=== PATIENT | male | born 2000 | race African-American/Black ===

== ENCOUNTER 2021-01-01 13:15 | Emergency (ER) | payer OTHER, SELFPAY | END 2021-01-01 15:15 | disposition home or self-care (01) | LOC: CSHERS 13:15 | DX: S09.90XA Unspecified injury of head, initial encounter (principal); S29.012A Strain of muscle and tendon of back wall of thorax, initial encounter; S76.911A Strain of unspecified muscles, fascia and tendons at thigh level, right thigh, initial encounter; V43.53XA Car driver injured in collision with pick-up truck in traffic accident, initial encounter | CPT/HCPCS: 99283 ==